=== PATIENT | female | born 1960 | race Hispanic/Latino ===

== ENCOUNTER 2017-12-11 18:50 | Emergency (ER) | payer BC ==
[~2017-12-11] VITALS: Ht 157.5 cm; Wt 107.5 kg
[~2017-12-11 18:50] MED LIST: BUSPIRONE HCL15 MG PO; CLONIDINE HCL0.1 MG PO; DIETHYLPROPION75 MG PO; LISINOPRIL10 MG PO; PROZAC20 MG PO; TRAZODONE HCL100 MG PO; VITAMIN B12 IM
[2017-12-11] MEDS ORDERED: ALBUTEROL SULF 0.083% NEB SOLN 3 ML NEB NEB STA (18:53)
[2017-12-11] MEDS ORDERED: SODIUM CHLORIDE 0.9% 1000ML 1,000 ML IV STA (18:53)
[2017-12-11] MEDS ORDERED: IPRATROPIUM BROMIDE 0.02% 2.5 ML NEB NEB STA (18:53)
[2017-12-11] MEDS ORDERED: ACETAMINOPHEN/CODEINE ELIX 120-12 MG/5 ML UDC PO ONE (19:00)
[2017-12-11] MEDS ORDERED: DEXAMETHASONE SOD PHOS 10 MG/1 ML VIAL IV ONE (19:00)
[2017-12-11] MEDS ORDERED: IBUPROFEN 600 MG TAB PO STA (19:24)
[2017-12-11 21:06] LABS: BILIRUBIN,URINE NEGATIVE (NEGATIVE); CLARITY,URINE CLEAR (CLEAR); COLOR,URINE YELLOW (YELLOW); KETONES,URINE NEGATIVE (NEGATIVE); LEUKOCYTE ESTERASE ,URINE NEGATIVE (NEGATIVE); NITRITE,URINE NEGATIVE (NEGATIVE); PROTEIN,URINE DIPSTICK NEGATIVE (NEGATIVE); URINE UROBILINOGEN 0.2 mg/dL (0.2 - 1)
[2017-12-11 21:21] LABS: EPITHELIAL CELLS,URINE RARE /LPF; MUCUS,URINE MODERATE (RARE); RBC,URINE 0-5 /HPF (0-5); WBC,URINE (MAN) 0-5 /HPF (0-5)
--- NOTE | 2017-12-11 21:22 | Diagnostic Imaging Report ---
CHEST SINGLE (NOT PORTABLE), 12/11/2017 6:53 PM Technique: CHEST SINGLE (NOT PORTABLE) Comparison: None available. Clinical history: Flulike symptoms, cough Findings: Heart/mediastinum: normal given portable technique and mild rotation. Lungs/pleural spaces: No consolidation or edema. No pleural effusion or pneumothorax. Clips are seen of the upper abdomen. Impression: 1. Lines/Tubes: None 2. No acute abnormality. Signed by: Dr Vannesa Tobin MD on 12/11/2017 9:19 PM
== END 2017-12-11 22:06 | disposition left against medical advice (07) ==
LOC: ER 18:50
DX: R50.9 Fever, unspecified (principal)
CPT/HCPCS: 71010; 81001; 87086; 87400

== ENCOUNTER 2019-01-31 10:25 | Emergency (ER) | payer BC ==
[~2019-01-31] VITALS: Ht 157.5 cm; Wt 107.5 kg
--- OUTSIDE RECORDS SUMMARY | 2019-01-31 10:28 | XMS REPORT ---
Author [facility] Address Unknown Phone Unavailable Care Team Providers Care Shank Breaker Name Role Phone Jazmyne RHODES Unavailable Unavailable Problems This patient has no known problems. Allergies, Adverse Reactions, Alerts This patient has no known allergies or adverse reactions. Medications This patient has no known medications. Results Test Description Test Time Test Comments Text Results Atomic Results Result Comments CHEST SINGLE (NOT PORTABLE) [place] [address] Patient Name: KALEB MCNEAL MR #: [id number] : 1960 Age/Sex: 57/F Req #: [id number] Adm Physician: Ordered by: NATALIA MARTINI NECK SKEWER Report #: [id number] Location: ER Room/Bed: Procedure: [id number] DX/CHEST SINGLE (NOT PORTABLE) Exam Date: 12/11/17 Exam Time: 1914 REPORT STATUS: Signed CHEST SINGLE (NOT PORTABLE), 12/11/2017 6:53 PM Technique: CHEST SINGLE (NOT PORTABLE) Comparison: None available. Clinical history: Flulike symptoms, cough Findings: Heart/mediastinum: normal given portable technique and mild rotation. Lungs/pleural spaces: No consolidation or edema. No pleural effusion or pneumothorax. Clips are seen of the upper abdomen. Impression: 1. Lines/Tubes: None 2. No acute abnormality. Signed by: Dr Bereket Tobin MD on 12/11/2017 9:19 PM Dictated By: BEREKET TOBIN MD 18 Transcribed By: REBEKAH on 12/11/172118 COPY TO: NATALIA MARTINI NP
[2019-01-31] MEDS ORDERED: IBUPROFEN 600 MG TAB PO NR (10:41)
[2019-01-31] MEDS ORDERED: DEXAMETHASONE SOD PHOS 10 MG/1 ML VIAL IM NR (10:45)
[2019-01-31] MEDS ORDERED: HYDROCODONE/CHLORPHENIRAMINE 5 ML LIQCR PO PRN (10:45)
[2019-01-31] MEDS ORDERED: ALBUTEROL/IPRATROPIUM 3 ML NEB NEB ONE (10:45)
[2019-01-31 11:14] LABS: STREPTOCOCCUS GRP A ANTIGEN NEGATIVE (NEGATIVE)
[2019-01-31] MEDS ORDERED: HYDROXYZINE HCL25 MG PO (11:20)
[2019-01-31] MEDS ORDERED: FUROSEMIDE40 MG PO (11:20)
[2019-01-31] MEDS ORDERED: MONTELUKAST SOD10 MG PO (11:20)
[2019-01-31] MEDS ORDERED: KLOR-CON 1010 MEQ (11:20)
[2019-01-31 11:23] LABS: INFLUENZAE A&B ANTIGEN (RAPID) NEGATIVE (NEGATIVE)
--- NOTE | 2019-01-31 12:10 | Diagnostic Imaging Report ---
EXAM: CHEST 2 VIEWS, PA and lateral DATE: 01/31/2019 Time stamp on exam: 10:49 AM INDICATION: Wheezing COMPARISON: 12/11/2017 FINDINGS: LINES/TUBES: None LUNGS: No consolidations or edema. PLEURA: No effusions or pneumothorax. HEART AND MEDIASTINUM: Normal size and contour. BONES AND SOFT TISSUES: Degenerative changes of the spine. There are clips in the left and right upper quadrant of the abdomen. IMPRESSION: No acute thoracic abnormality. Signed by: Dr. Catracho Strong DO on 01/31/2019 12:07 PM
[2019-01-31 12:28] VITALS: BP 101/62
== END 2019-01-31 13:35 | disposition home or self-care (01) ==
LOC: ER 10:25
DX: R05 Cough (principal); R06.2 Wheezing; J02.9 Acute pharyngitis, unspecified; I10 Essential (primary) hypertension
CPT/HCPCS: 71046; 83518; 87070; 87400; 94640; 99283; J1100

== ENCOUNTER 2020-03-02 21:02 | Emergency (ER) | payer BC, OTHER ==
[~2020-03-02] VITALS: Ht 157.5 cm; Wt 107.5 kg
[~2020-03-02 21:02] MED LIST changes: +FUROSEMIDE40 MG PO; +HYDROXYZINE HCL25 MG PO; +KLOR-CON 1010 MEQ; +MONTELUKAST SOD10 MG PO
[2020-03-02] MEDS ORDERED: ACETAMINOPHEN 325 MG TAB PO ONE (21:30)
[2020-03-02 21:46] LABS: STREPTOCOCCUS GRP A ANTIGEN NEGATIVE (NEGATIVE)
[2020-03-02 21:58] LABS: INFLUENZAE A&B ANTIGEN (RAPID) NEGATIVE (NEGATIVE)
--- NOTE | 2020-03-02 23:11 | Diagnostic Imaging Report ---
EXAMINATION: CHEST SINGLE (PORTABLE) INDICATION: Fever, cough COMPARISON: Chest x-ray 01/31/2019 FINDINGS: TUBES and LINES: None. LUNGS: Normal lung volumes. Lungs are clear. No consolidations. PLEURA: No pleural effusion or pneumothorax. HEART AND MEDIASTINUM: The cardiomediastinal silhouette is unremarkable. BONES AND SOFT TISSUES: No acute osseous lesion. Soft tissues are unremarkable. UPPER ABDOMEN: No free air under the diaphragm. There are cholecystectomy clips. Surgical clips by the gastroesophageal junction. IMPRESSION: No acute thoracic radiographic abnormality. Signed by: Nathanael Taylor DO on 03/02/2020 11:07 PM
[2020-03-02 23:12] VITALS: BP 109/60
== END 2020-03-02 23:19 | disposition home or self-care (01) ==
LOC: ER 21:02
DX: R50.9 Fever, unspecified (principal); R05 Cough; J20.9 Acute bronchitis, unspecified
CPT/HCPCS: 71045; 83518; 87070; 87400; 87635; 99283

== ENCOUNTER 2022-04-21 14:22 | Inpatient (IN) | payer BC ==
[~2022-04-21] VITALS: Ht 157.5 cm; Wt 107.5 kg
[2022-04-21] MEDS ORDERED: SODIUM CHLORIDE 0.9% 1000ML 1,000 ML IV ONE (14:45)
[2022-04-21] MEDS ORDERED: ACETAMINOPHEN 325 MG TAB PO ONE ×2 (14:45→15:00)
[2022-04-21 14:57] LABS: BASOPHILS % 0.3 % (0.0-1.0); EOSINOPHILS % 0.1 % (0.0-6.0); HEMATOCRIT 35.9 % (34.2-44.1); HEMOGLOBIN 10.9 g/dL (12.0-16.0); LYMPHOCYTES # (AUTO) 0.9 (1.0-3.2); LYMPHOCYTES % 8.8 % (18.0-39.1); MEAN CORPUSCULAR HEMOGLOBIN 25.3 pg (28-32); MEAN CORPUSCULAR HGB CONC 30.4 g/dL (31-35); MEAN CORPUSCULAR VOLUME 83.5 fL (81-99); MONOCYTES # (AUTO) 0.9 (0.2-0.8); MONOCYTES % 8.3 % (4.4-11.3); NEUTROPHILS # (AUTO) 8.8 (2.1-6.9); NEUTROPHILS % 82.2 % (38.7-80.0); PLATELET COUNT 266 x10e3/uL (140-360); RED CELL DISTRIBUTION WIDTH 14.9 % (11.7-14.4)
[2022-04-21] MEDS ORDERED: ONDANSETRON HCL INJ 2MG/ML 2ML 2 MG/ML VIAL IV PRN (15:00)
[2022-04-21 15:07] LABS: INR 0.98; PARTIAL THROMBOPLASTIN TIME 31.1 seconds (23.8-35.5); PROTHROMBIN TIME 13.9 seconds (11.9-14.5)
[2022-04-21 15:17] LABS: ALANINE AMINOTRANSFERASE 26 IU/L (0-55); ALBUMIN 3.3 g/dL (3.5-5.0); ALBUMIN/GLOBULIN RATIO 0.8 (0.8-2.0); ALKALINE PHOSPHATASE 117 IU/L (40-150); ANION GAP 16.7 mmol/L (8-16); BLOOD UREA NITROGEN 13 mg/dL (7-26); BUN/CREATININE RATIO 16 (6-25); CALCIUM 8.6 mg/dL (8.4-10.2); CARBON DIOXIDE 20 mmol/L (22-29); CHLORIDE 103 mmol/L (98-107); CREATINE KINASE 340 IU/L (29-168); CREATININE, SERUM 0.81 mg/dL (0.57-1.11); GLUCOSE 138 mg/dL (74-118); POTASSIUM 3.7 mmol/L (3.5-5.1); SODIUM 136 mmol/L (136-145)
[2022-04-21 15:54] LABS: CLARITY,URINE CLOUDY (CLEAR); COLOR,URINE YELLOW (YELLOW); LEUKOCYTE ESTERASE ,URINE NEGATIVE (NEGATIVE); NITRITE,URINE NEGATIVE (NEGATIVE); PROTEIN,URINE DIPSTICK 1+ (NEGATIVE)
[2022-04-21 15:55] LABS: KETONES,URINE NEGATIVE (NEGATIVE); URINE UROBILINOGEN 0.2 mg/dL (0.2 - 1)
[2022-04-21 16:07] LABS: BACTERIA,URINE MANY /HPF; EPITHELIAL CELLS,URINE FEW /LPF; MUCUS,URINE MANY (RARE)
[2022-04-21] MEDS: SODIUM CHLORIDE 0.9% 1000ML 1,000 ML IV SCH ×2 (18:29→20:50)
[2022-04-21] MEDS: VANCOMYCIN HCL 125 MG CAPSULE PO SCH ×2 (18:29→22:38)
[2022-04-21 20:00] VITALS: BP 110/50
[2022-04-21 20:30] VITALS: BP 110/50
[2022-04-21] MEDS ORDERED: IOPAMIDOL 370 MG/ML 100 ML INFUS..BTL INJ ONE (22:04)
[2022-04-22] VITALS (7 sets, daily range): BP systolic 89–184; BP diastolic 39–95
[2022-04-22] MEDS: VANCOMYCIN HCL 125 MG CAPSULE PO SCH ×3 (05:47→18:12)
[2022-04-22] MEDS: SODIUM CHLORIDE 0.9% 1000ML 1,000 ML IV SCH ×2 (05:48→15:40)
[2022-04-22 07:35] LABS: ALBUMIN 2.5 g/dL (3.5-5.0); ALBUMIN/GLOBULIN RATIO 0.8 (0.8-2.0); ANION GAP 10.3 mmol/L (8-16); CALCIUM 7.7 mg/dL (8.4-10.2); CREATININE, SERUM 0.69 mg/dL (0.57-1.11); POTASSIUM 3.3 mmol/L (3.5-5.1)
[2022-04-22] MEDS ORDERED: LACTOBACILLUS ACIDOPHILUS CAPSULE PO SCH ×2 (13:30→15:00)
[2022-04-22] MEDS: HYDROCODONE/APAP 5MG-325MG TAB PO PRN ×2 (14:10→18:40)
[2022-04-22] MEDS ORDERED: POTASSIUM CHLORIDE 20 MEQ TAB CR PO ONE (14:30)
[2022-04-22] MEDS ORDERED: LACTOBACILLUS ACIDOPHILUS CAPSULE PO ONE (15:30)
[2022-04-22] MEDS: TRAZODONE HCL 50 MG TAB PO SCH (21:00)
[2022-04-22] MEDS: Morphine 2mg Syringe 2 MG/ML SYR IV PRN (21:35)
[2022-04-23] VITALS (9 sets, daily range): BP systolic 92–111; BP diastolic 55–77
[2022-04-23] MEDS: VANCOMYCIN HCL 125 MG CAPSULE PO SCH ×4 (06:00→17:36)
[2022-04-23 06:51] LABS: BASOPHILS % 0.4 % (0.0-1.0); EOSINOPHILS # (AUTO) 0.1 (0.0-0.4); EOSINOPHILS % 2.2 % (0.0-6.0); HEMOGLOBIN 8.4 g/dL (12.0-16.0); LYMPHOCYTES # (AUTO) 2.2 (1.0-3.2); LYMPHOCYTES % 39.4 % (18.0-39.1); MEAN CORPUSCULAR HEMOGLOBIN 25.5 pg (28-32); MEAN CORPUSCULAR VOLUME 84.8 fL (81-99); MONOCYTES # (AUTO) 0.5 (0.2-0.8); MONOCYTES % 9.6 % (4.4-11.3); NEUTROPHILS # (AUTO) 2.7 (2.1-6.9); PLATELET COUNT 209 x10e3/uL (140-360); RED CELL DISTRIBUTION WIDTH 15.7 % (11.7-14.4)
[2022-04-23 07:17] LABS: ALBUMIN 2.4 g/dL (3.5-5.0); ALBUMIN/GLOBULIN RATIO 0.8 (0.8-2.0); ANION GAP 11.3 mmol/L (8-16); CALCIUM 7.8 mg/dL (8.4-10.2); CREATININE, SERUM 0.67 mg/dL (0.57-1.11); POTASSIUM 3.3 mmol/L (3.5-5.1)
[2022-04-23] MEDS: LACTOBACILLUS ACIDOPHILUS CAPSULE PO SCH ×3 (08:48→21:30)
[2022-04-23] MEDS: BUSPIRONE HCL 5 MG TAB PO SCH (08:48)
[2022-04-23] MEDS: Morphine 2mg Syringe 2 MG/ML SYR IV PRN ×4 (08:48→22:20)
[2022-04-23] MEDS: SODIUM CHLORIDE 0.9% 1000ML 1,000 ML IV SCH ×2 (09:46→23:02)
[2022-04-23] MEDS ORDERED: POTASSIUM CHLORIDE 20 MEQ TAB CR PO ONE (10:30)
[2022-04-23] MEDS: ONDANSETRON HCL INJ 2MG/ML 2ML 2 MG/ML VIAL IV PRN ×2 (13:08→17:48)
[2022-04-23] MEDS: TRAZODONE HCL 50 MG TAB PO SCH (21:30)
[2022-04-24] VITALS: BP 100/61
[2022-04-24 04:00] VITALS: BP 102/61
[2022-04-24 05:56] LABS: BASOPHILS % 0.3 % (0.0-1.0); EOSINOPHILS # (AUTO) 0.1 (0.0-0.4); LYMPHOCYTES # (AUTO) 2.5 (1.0-3.2); LYMPHOCYTES % 38.8 % (18.0-39.1); MEAN CORPUSCULAR HEMOGLOBIN 25.4 pg (28-32); MEAN CORPUSCULAR VOLUME 84.7 fL (81-99); MONOCYTES # (AUTO) 0.6 (0.2-0.8); MONOCYTES % 8.6 % (4.4-11.3); NEUTROPHILS # (AUTO) 3.2 (2.1-6.9); PLATELET COUNT 253 x10e3/uL (140-360); RED BLOOD COUNT 3.54 x10e6/uL (3.6-5.1); RED CELL DISTRIBUTION WIDTH 15.8 % (11.7-14.4)
[2022-04-24] MEDS: VANCOMYCIN HCL 125 MG CAPSULE PO SCH ×5 (05:57→22:01)
[2022-04-24 06:17] LABS: ANION GAP 11.3 mmol/L (8-16); CALCIUM 8.6 mg/dL (8.4-10.2); CREATININE, SERUM 0.69 mg/dL (0.57-1.11); POTASSIUM 3.3 mmol/L (3.5-5.1)
[2022-04-24 08:35] VITALS: BP 125/64
[2022-04-24] MEDS: LACTOBACILLUS ACIDOPHILUS CAPSULE PO SCH ×3 (08:59→21:48)
[2022-04-24] MEDS: BUSPIRONE HCL 5 MG TAB PO SCH (08:59)
[2022-04-24] MEDS: ONDANSETRON HCL INJ 2MG/ML 2ML 2 MG/ML VIAL IV PRN ×2 (09:12→14:43)
[2022-04-24] MEDS: Morphine 2mg Syringe 2 MG/ML SYR IV PRN ×3 (09:13→22:00)
[2022-04-24] MEDS ORDERED: MAGNESIUM SULF 1GRAM/DEXTROSE 100 ML IV ONE (12:30)
[2022-04-24] MEDS: SODIUM CHLORIDE 0.9% 1000ML 1,000 ML IV SCH (12:36)
[2022-04-24 13:03] VITALS: BP 126/70
[2022-04-24] MEDS ORDERED: POTASSIUM CHLORIDE 20 MEQ TAB CR PO ONE (14:00)
[2022-04-24 17:33] VITALS: BP 121/77
[2022-04-24 20:00] VITALS: BP 122/73
[2022-04-24] MEDS: TRAZODONE HCL 50 MG TAB PO SCH (21:48)
[2022-04-25] VITALS (7 sets, daily range): BP systolic 117–149; BP diastolic 67–86
[2022-04-25] MEDS: SODIUM CHLORIDE 0.9% 1000ML 1,000 ML IV SCH ×3 (01:30→22:18)
[2022-04-25] MEDS: VANCOMYCIN HCL 125 MG CAPSULE PO SCH (01:30)
[2022-04-25] MEDS: HYDROCODONE/APAP 5MG-325MG TAB PO PRN (06:27)
[2022-04-25 08:09] LABS: BASOPHILS % 0.6 % (0.0-1.0); EOSINOPHILS # (AUTO) 0.1 (0.0-0.4); EOSINOPHILS % 2.3 % (0.0-6.0); HEMATOCRIT 29.6 % (34.2-44.1); LYMPHOCYTES # (AUTO) 1.8 (1.0-3.2); LYMPHOCYTES % 34.7 % (18.0-39.1); MEAN CORPUSCULAR HEMOGLOBIN 25.2 pg (28-32); MEAN CORPUSCULAR HGB CONC 30.4 g/dL (31-35); MEAN CORPUSCULAR VOLUME 82.9 fL (81-99); MONOCYTES # (AUTO) 0.4 (0.2-0.8); MONOCYTES % 6.7 % (4.4-11.3); NEUTROPHILS # (AUTO) 2.9 (2.1-6.9); NEUTROPHILS % 55.5 % (38.7-80.0); PLATELET COUNT 261 x10e3/uL (140-360); RED BLOOD COUNT 3.57 x10e6/uL (3.6-5.1); RED CELL DISTRIBUTION WIDTH 15.4 % (11.7-14.4)
[2022-04-25 08:35] LABS: ANION GAP 11.7 mmol/L (8-16); CREATININE, SERUM 0.69 mg/dL (0.57-1.11); MAGNESIUM 1.9 MG/DL (1.3-2.1); POTASSIUM 3.7 mmol/L (3.5-5.1)
[2022-04-25] MEDS: BUSPIRONE HCL 5 MG TAB PO SCH (09:00)
[2022-04-25] MEDS: LACTOBACILLUS ACIDOPHILUS CAPSULE PO SCH ×3 (09:00→22:19)
[2022-04-25] MEDS: Morphine 2mg Syringe 2 MG/ML SYR IV PRN ×2 (11:05→22:26)
[2022-04-25] MEDS ORDERED: NON-FORMULARY MEDICATION (Buspirone Hcl 15 MG) PO SCH (14:15)
[2022-04-25] MEDS ORDERED: FLUOXETINE HCL 20 MG CAP PO SCH (14:15)
[2022-04-25] MEDS: METRONIDAZOLE 500MG/NS 100ML 100 ML IV SCH ×2 (14:54→22:18)
[2022-04-25] MEDS ORDERED: BUSPIRONE HCL 5 MG TAB PO SCH (15:00)
[2022-04-25] MEDS: MONTELUKAST SODIUM 10 MG TAB PO SCH (15:10)
[2022-04-25] MEDS ORDERED: ADVAIR 500/501 EA INH (15:37)
[2022-04-25] MEDS: FLUOXETINE HCL 20 MG CAP PO SCH (16:01)
[2022-04-25] MEDS: CHOLESTYRAMINE 4 GM PACKET PO SCH (18:00)
[2022-04-25] MEDS ORDERED: TRAZODONE HCL 50 MG TAB PO SCH ×2 (21:00)
[2022-04-26] VITALS: BP 149/69
[2022-04-26 00:05] LABS: CLARITY,URINE CLEAR (CLEAR); COLOR,URINE STRAW (YELLOW); KETONES,URINE NEGATIVE (NEGATIVE); LEUKOCYTE ESTERASE ,URINE NEGATIVE (NEGATIVE); NITRITE,URINE NEGATIVE (NEGATIVE); PROTEIN,URINE DIPSTICK NEGATIVE (NEGATIVE); URINE UROBILINOGEN 0.2 mg/dL (0.2 - 1)
[2022-04-26 00:07] LABS: BACTERIA,URINE RARE /HPF; EPITHELIAL CELLS,URINE FEW /LPF; RBC,URINE 0-5 /HPF (0-5); WBC,URINE (MAN) 0-5 /HPF (0-5)
[2022-04-26 04:00] VITALS: BP 132/64
[2022-04-26 05:02] LABS: BASOPHILS # (AUTO) 0.1 (0.0-0.1); BASOPHILS % 0.7 % (0.0-1.0); EOSINOPHILS # (AUTO) 0.1 (0.0-0.4); EOSINOPHILS % 1.8 % (0.0-6.0); HEMATOCRIT 29.4 % (34.2-44.1); HEMOGLOBIN 9.1 g/dL (12.0-16.0); LYMPHOCYTES # (AUTO) 1.9 (1.0-3.2); LYMPHOCYTES % 26.3 % (18.0-39.1); MEAN CORPUSCULAR HEMOGLOBIN 25.3 pg (28-32); MEAN CORPUSCULAR VOLUME 81.9 fL (81-99); MONOCYTES # (AUTO) 0.5 (0.2-0.8); MONOCYTES % 6.5 % (4.4-11.3); NEUTROPHILS # (AUTO) 4.6 (2.1-6.9); NEUTROPHILS % 64.1 % (38.7-80.0); PLATELET COUNT 272 x10e3/uL (140-360); RED BLOOD COUNT 3.59 x10e6/uL (3.6-5.1); RED CELL DISTRIBUTION WIDTH 15.1 % (11.7-14.4)
[2022-04-26 05:28] LABS: ANION GAP 13.5 mmol/L (8-16); CALCIUM 8.2 mg/dL (8.4-10.2); CREATININE, SERUM 0.66 mg/dL (0.57-1.11); POTASSIUM 3.5 mmol/L (3.5-5.1)
[2022-04-26] MEDS: METRONIDAZOLE 500MG/NS 100ML 100 ML IV SCH (05:41)
[2022-04-26] MEDS ORDERED: POTASSIUM CHLORIDE 20 MEQ TAB CR PO ONE (08:15)
[2022-04-26 08:32] VITALS: BP 127/79
[2022-04-26] MEDS: CHOLESTYRAMINE 4 GM PACKET PO SCH (09:01)
[2022-04-26] MEDS: MONTELUKAST SODIUM 10 MG TAB PO SCH (09:01)
[2022-04-26] MEDS: FLUOXETINE HCL 20 MG CAP PO SCH (09:01)
[2022-04-26] MEDS: LACTOBACILLUS ACIDOPHILUS CAPSULE PO SCH (09:01)
[2022-04-26] MEDS: HYDROCODONE/APAP 5MG-325MG TAB PO PRN (09:10)
[2022-04-26 09:17] VITALS: BP 127/79
[2022-04-26] MEDS ORDERED: Lactobacillus Acidophilus PO (10:31)
[2022-04-26] MEDS ORDERED: CHOLESTYRAMINE L4 GM PO (10:31)
[2022-04-26] MEDS ORDERED: FLAGYL375 MG PO (10:31)
[2022-04-26] MEDS ORDERED: MICONAZOLE NITRATE 45 GM CR VG SCH (21:00)
== END 2022-04-26 11:58 | disposition home or self-care (01) | DRG 871 ==
LOC: ER 14:29 → INTOOBSV 17:40 → ERHOLD 17:40 → MED/SURG2 20:10 → OBSVTOIN 04-23 12:26
PROVIDERS: ADMIT Internal Medicine; ATTEND Internal Medicine
DX: A41.9 Sepsis, unspecified organism (principal); G93.41 Metabolic encephalopathy; K92.1 Melena; K56.609 Unspecified intestinal obstruction, unspecified as to partial versus complete obstruction; E87.2 Acidosis; A04.8 Other specified bacterial intestinal infections; E11.9 Type 2 diabetes mellitus without complications; E83.42 Hypomagnesemia; F41.9 Anxiety disorder, unspecified; R19.7 Diarrhea, unspecified; R00.2 Palpitations; E87.5 Hyperkalemia; R65.20 Severe sepsis without septic shock; E87.6 Hypokalemia; E86.0 Dehydration; Z20.822 Contact with and (suspected) exposure to COVID-19; I11.0 Hypertensive heart disease with heart failure; I50.9 Heart failure, unspecified
CPT/HCPCS: 36415; 51700; 74019; 74177; 80048; 80053; 81001; 82270; 82550; 82553; 83605; 83735; 84100; 84484; 85025; 85610; 85730; 87040; 87045; 87086; 87493; 93005; 99284; G0378; J0692; J2270; J2405; J2543; J3475; J7030; Q9967

== ENCOUNTER → 2023-09-05 | Outpatient (REF) | payer BC ==
[~2023-09-05] MED LIST changes: +ADVAIR 500/501 EA INH; +CHOLESTYRAMINE L4 GM PO; +FLAGYL375 MG PO; +Lactobacillus Acidophilus PO
== END ==
LOC: RAD 09:02
PROVIDERS: ATTEND Internal Medicine
DX: I50.32 Chronic diastolic (congestive) heart failure (principal); R60.0 Localized edema
CPT/HCPCS: 93306